=== PATIENT | female | born 1970 | race Caucasian/White ===

== ENCOUNTER → 2017-03-15 | Outpatient (CLI) | payer OTHER | LOC: FIMAGING 13:54 | PROVIDERS: ATTEND Obstetrics & Gynecology | DX: Z12.31 Encounter for screening mammogram for malignant neoplasm of breast (principal) | CPT/HCPCS: G0202 ==

== ENCOUNTER 2017-05-23 17:09 | Emergency (ER) | payer OTHER ==
--- NOTE | 2017-05-23 17:39 | EDPHY ---
H & P Stated Complaint: FELL OFF HORSE AT [employer]PE[employer] OF JUMP, PAIN R HIP AND KNEE Time Seen by Provider: 05/23/17 17:17 HPI/ROS: Chief Complaint: Right hip pain status post fall from horse HPI: 46-year-old woman was riding a horse and a competition jumping today. At the last shunt patient fell off the horse landing on her right posterior hip. She had immediate onset of pain. She was wearing helmet. She did hit her head but has no loss of consciousness. Has full recollection of events. She has been unable to ambulate since the injury. She received 100 mcg of fentanyl by EMS with some relief in her pain. No chest pain. No headache or neck pain. No numbness or tingling. No abdominal pain. ROS: 10 point Review of Systems is negative except as noted in the HPI. PMH: Denies Social History: No smoking, no alcohol, no recreational drug use Family History: non-contributory Physical Exam: Gen: Awake, Alert, Airway Intact HEENT: Head: Atraumatic Eyes: PERRLA, EOMI Nose: No epistaxis Mouth: Normal dentition, Airway patent Face: No deformity Neck: non-tender, no stepoff, Full ROM without pain Chest: non-tender, lungs CTA Heart: normal heart tones Abd: soft, non-tender, atraumatic Pelvis: Patient has tenderness over the posterior iliac wing, stable to AP and Lateral compression Back: atraumatic, midline tenderness in the lumbar region without step-offs or crepitus. Ext: Right hip is atraumatic, full range of motion without pain. No femur tenderness. atramatic, full ROM Skin: no rash Neuro: CN II-XII intact, Strength 5/5 in all extremities, sensation intact in all extremities - Personal History LMP (Females 10-55): 22-28 Days Ago Current Tetanus Diphtheria and Acellular Pertussis (TDAP): Yes Tetanus Vaccine Date: < 10 YEARS - Medical/Surgical History Hx Asthma: No Hx Chronic Respiratory Disease: No Hx Diabetes: No Hx Cardiac Disease: No Hx Renal Disease: No Hx Cirrhosis: No Hx Alcoholism: No Hx HIV/AIDS: No Hx Splenectomy or Spleen Trauma: No Other PMH: NEURO DISORDER, COMPOUND FRACTURE L ARM - Social History Smoking Status: Never smoked Constitutional: Initial Vital Signs Temperature (C) 36.9 C 05/23/17 17:17 Heart Rate 92 12/28/17 17:17 Respiratory Rate 16 05/23/17 17:17 Blood Pressure 140/100 H 05/23/17 17:17 O2 Sat (%) 95 05/23/17 17:17 O2 Delivery Mode Room Air Allergies/Adverse Reactions: Horse/Equine Containing Products Allergy (Unknown, Verified 05/23/17 17:21) Home Medications: Medication Instructions Recorded Control Pills 05/23/17 Hydrocodone/Acetaminophen 1 - 2 each PO Q4-6PRN PRN #10 05/23/17 [Hydrocodon-Acetaminophen 5-325] tablet Venlafaxine HCl 05/23/17 Medical Decision Making - Diagnostics Imaging Results: Imaging Impressions Lumbar Spine X-Ray 05/23/17 17:23 Impression: L5-S1 degenerative disk disease. Mild lumbar levoscoliosis. No fracture identified. Pelvis X-Ray 05/23/17 17:23 Impression: Negative for fracture. ED Course/Re-evaluation: Patient is ambulating unassisted in the emergency department. She is contusion none of the right iliac wing. There is no fractures. Abdomen is soft and benign. Pain is controlled here after Toradol. Will discharge with analgesia, follow up with primary care, return for worsening. No and its of any intra- abdominal or orthopedic injuries at this time. - Data Points Laboratory Results: 05/23/17 18:30 Urine Color YELLOW Urine Appearance HAZY Urine pH 5.0 (5.0-7.5) Ur Specific [place] 1.016 (1.002-1.030) Urine Protein 1+ H (NEGATIVE) Urine Ketones 1+ H (NEGATIVE) Urine Blood 1+ H (NEGATIVE) Urine Nitrate NEGATIVE (NEGATIVE) Urine Bilirubin NEGATIVE (NEGATIVE) Urine Urobilinogen NEGATIVE EU EU (0.2-1.0) Ur Leukocyte Esterase NEGATIVE (NEGATIVE) Urine RBC 1-3 /hpf /hpf (0-3) Urine WBC 1-3 /hpf /hpf (0-3) Ur Epithelial Cells TRACE /lpf /lpf (NONE-1+) Urine Bacteria 3+ /hpf H /hpf (NONE SEEN) Urine Mucus TRACE /lpf /lpf (NONE-1+) Urine Glucose NEGATIVE (NEGATIVE) Medications Given: Discontinued Medications Sodium Chloride (Ns) 1,000 mls @ 0 mls/hr IV ONCE ONE PRN Reason: Wide Open Stop: 05/23/17 18:48 Last Admin: 05/23/17 18:47 Dose: 1,000 mls Ketorolac Tromethamine (Toradol) 15 mg IVP EDNOW ONE Stop: 05/23/17 19:41 Last Admin: 05/23/17 19:41 Dose: 15 mg Morphine Sulfate (Morphine) 4 mg IVP ONCE ONE Stop: 05/23/17 17:25 Last Admin: 05/23/17 17:29 Dose: 4 mg Departure - Departure Disposition: Home, Routine, Self-Care Clinical Impression: Contusion Condition: Good Instructions: Hydrocodone/Acetaminophen (By mouth), Contusion in Adults (ED) Additional Instructions: You take ibuprofen 600 mg 3 times a day. You continue to have breakthrough pain you may take Fiatt, 1-2 tabs every 4-6 hours as needed. Follow up with primary care physician in 2-3 days for further evaluation. Return to the emergency depart for increasing pain, abdominal pain, nausea, vomiting, fainting, or any other concerns. Referrals: Patient,NotPresent [Unknown] - As per Instructions Prescriptions: Hydrocodone/Acetaminophen [Hydrocodon-Acetaminophen 5-325] 1 - 2 each PO Q4- 6PRN PRN #10 tablet PRN Reason: Pain, Severe
[2017-05-23] MEDS ORDERED: NS 1,000 ML IV ONE (18:47)
[2017-05-23 19:35] VITALS: RESP 18
[2017-05-23] MEDS ORDERED: KETOROLAC 15 MG/1 ML SDV ONE (19:38)
[2017-05-23] MEDS ORDERED: KETOROLAC 15 MG/1 ML SDV IVP ONE (19:40)
[2017-05-23] MEDS ORDERED: HYDROCOD/APAP 5/325 PREPACK#6 BTL TAKEHOME ONE (20:14)
[2017-05-23 20:30] VITALS: BP 115/74; PULSE 74; TEMP 98.1; O2SAT 95
== END 2017-05-23 20:30 | disposition home or self-care (01) ==
LOC: EDUNIT#
DX: S70.01XA Contusion of right hip, initial encounter (principal); V80.010A Animal-rider injured by fall from or being thrown from horse in noncollision accident, initial encounter; Y99.8 Other external cause status; Y93.52 Activity, horseback riding
CPT/HCPCS: 96374; J1885

== ENCOUNTER → 2017-07-23 | Outpatient (CLI) | payer OTHER | LOC: FIMAGING 16:39 | PROVIDERS: ATTEND Internal Medicine | DX: S32.009D Unspecified fracture of unspecified lumbar vertebra, subsequent encounter for fracture with routine healing (principal); M51.36 Other intervertebral disc degeneration, lumbar region; M51.37 Other intervertebral disc degeneration, lumbosacral region ==

== ENCOUNTER → 2018-03-18 | Outpatient (CLI) | payer OTHER | LOC: FIMAGING 15:09 | PROVIDERS: ATTEND Internal Medicine | DX: Z12.31 Encounter for screening mammogram for malignant neoplasm of breast (principal); Z80.3 Family history of malignant neoplasm of breast ==

== ENCOUNTER → 2018-04-09 | Outpatient (CLI) | payer OTHER | LOC: FIMAGING 09:09 | PROVIDERS: ATTEND Internal Medicine | DX: R92.8 Other abnormal and inconclusive findings on diagnostic imaging of breast (principal) ==

== ENCOUNTER → 2018-10-15 | Outpatient (CLI) | payer OTHER | LOC: FIMAGING 10:58 | PROVIDERS: ATTEND Obstetrics & Gynecology | DX: N60.02 Solitary cyst of left breast (principal) ==